=== PATIENT | male | born 1995 | race Two or more races ===

== ENCOUNTER 2018-07-31 02:25 | Emergency (ER) | payer MEDICAID ==
[~2018-07-31] VITALS: Ht 162.6 cm; Wt 65.8 kg
--- NOTE | 2018-07-31 02:30 | NUR ---
PT [id number] FROM [facility] C/O SI. -PLAN, -HI, -AUDITORY HALLUCINATION. PT APPEARS RESTLESS. PT BELONGINGS COLLECTED AND PLACED IN GOWN. PT ON MONITOR IN BED 12. WILL CONTINUE TO MONITOR.
--- NOTE | 2018-07-31 02:35 | NUR ---
URINE COLLECTED AND SENT TO LAB
--- NOTE | 2018-07-31 02:54 | NUR ---
[facility] AT BEDSIDE FOR LAB DRAW
[2018-07-31] MEDS ORDERED: LORAZEPAM 1 MG TABLET ONE (02:55)
[2018-07-31] MEDS ORDERED: OLANZAPINE 5 MG TABLET ONE (02:56)
[2018-07-31] MEDS ORDERED: LORAZEPAM 1 MG TABLET PO ONE (03:00)
[2018-07-31] MEDS ORDERED: OLANZAPINE 5 MG TABLET PO ONE (03:00)
[2018-07-31 03:04] LABS: BASOPHILS # (AUTO) 0.1 /CMM (0.0-0.2); BASOPHILS % (AUTO) 0.6 % (0.0-2.0); HEMATOCRIT 40 % (39-51); HEMOGLOBIN 13.6 g/dL (13.5-17.5); LYMPHOCYTES # (AUTO) 0.7 /CMM (0.8-4.8); LYMPHOCYTES % (AUTO) 5.9 % (20.0-44.0); MEAN CORPUSCULAR HGB CONC 34 g/dl (31.0-36.0); MEAN CORPUSCULAR VOLUME 87 fL (80-96); MONOCYTES # (AUTO) 1.2 /CMM (0.1-1.30); MONOCYTES % (AUTO) 9.9 % (2.0-12.0); NEUTROPHILS % (AUTO) 83.6 % (43.0-81.0); PLATELET COUNT (AUTO) 250 /CMM (150-450); RED BLOOD CELL COUNT(AUTO) 4.56 MIL/uL (4.5-6.0)
[2018-07-31 03:06] LABS: CALCIUM, SERUM 9.5 mg/dL (8.5-10.1); CARBON DIOXIDE 24 mmol/L (21-32); CHLORIDE 108 mmol/L (98-107); CREATININE 1.2 mg/dL (0.6-1.3); GLUCOSE 131 mg/dL (74-106); POTASSIUM 3.2 mmol/L (3.5-5.1); SODIUM SERUM 148 mmol/L (136-145); UREA NITROGEN, BLOOD 22 mg/dL (7-18)
[2018-07-31 03:20] LABS: ACETAMINOPHEN 0 ug/ml (10-30); ALANINE AMINOTRANSFERASE 38 U/L (12-78); ALBUMIN 4.5 g/dL (3.4-5.0); ALCOHOL, BLOOD < 3 mg/dL (0-0); ALKALINE PHOSPHATASE 93 U/L (46-116); ASPARTATE AMINOTRANSFERASE 47 U/L (15-37); BILIRUBIN,DIRECT 0.2 mg/dL (0.0-0.2); BILIRUBIN,TOTAL 0.8 mg/dL (0.2-1.0); SALICYLATE 2.5 mg/dL (2.8-20.0); TOTAL PROTEIN, SERUM 8.8 g/dL (6.4-8.2)
[2018-07-31] MEDS ORDERED: POTASSIUM CHLORIDE 20 MEQ TAB.PRT.SR PO ONE ×2 (03:30→04:27)
[2018-07-31] MEDS ORDERED: POTASSIUM CHLORIDE 10 MEQ TABLET.SA ONE (04:14)
--- NOTE | 2018-07-31 04:38 | NUR ---
ED ALEXANDERICELL WAS OUT OF 20 MEQ TABLETS OF K DUR. 10 MEQ TABLETS OF K DUR WERE XR. RETURNED 4 10 MEQ TABLETS OF K DUR. RECEIVED 2 20 MEQ K DUR TABLETS FROM [facility].
--- NOTE | 2018-07-31 04:45 | NUR ---
LEE PAGED FOR PSYCH CONSULT
--- NOTE | 2018-07-31 05:42 | NUR ---
CALLED [facility] FOR PSYCH EVAL. ETA 1 HOUR
--- NOTE | 2018-07-31 06:50 | NUR ---
[facility] AT BEDSIDE FOR EVAL
--- NOTE | 2018-07-31 07:33 | NUR ---
REPORT GIVEN TO ZAIN BRIGHT FOR [facility]
[2018-07-31] MEDS ORDERED: OLANZAPINE 10 MG VIAL IM ONE ×2 (08:59→09:00)
[2018-07-31] MEDS ORDERED: ACETAMINOPHEN 325 MG TABLET PO ONE (09:30)
[2018-07-31] MEDS ORDERED: ACETAMINOPHEN 325 MG TABLET ONE (09:40)
[2018-07-31] MEDS: ACETAMINOPHEN ES 500 MG TABLET PO ONE (10:00)
[2018-07-31 10:45] VITALS: BP 126/75
--- NOTE | 2018-07-31 15:24 | NUR ---
CALLED [facility] FOR TRANSPORT ETA OF 2722 WAS GIVEN. TRIP#[id number]
== END 2018-07-31 18:00 ==
LOC: ER 02:28
DX: F15.10 Other stimulant abuse, uncomplicated (principal); F22 Delusional disorders
CPT/HCPCS: 36415; 80048; 80076; 80305; 80307; 80329; 85025; 96372; 99285; G0480; J3490